=== PATIENT | male | born 1935 | race Caucasian/White ===

== ENCOUNTER → 2023-06-09 | Outpatient (CLI) | payer SELFPAY ==
[2023-06-09 18:59] LABS: Hepatitis A Ab, Total Reactive (Non-Reactive)
[2023-06-09 19:39] LABS: Hepatitis B Surface AB- Quant 3.5 mIU/mL
[2023-06-10 07:05] LABS: Mumps Virus IgG Ab Interp POSITIVE; Mumps Virus IgG Antibody 3.1 AI
== END | disposition home or self-care (01) ==
LOC: LABWHC1 11:51
PROVIDERS: ATTEND Family Medicine
DX: Z02.89 Encounter for other administrative examinations (principal)
CPT/HCPCS: 36415; 86706; 86708; 86735; 86762; 86765; 86780; 86787; 87591

== ENCOUNTER 2023-12-26 15:34 | Inpatient (IN) | payer MEDICARE, OTHER ==
[2023-12-26] MEDS: SODIUM CHLORIDE 0.9% 500 ML 500 ML IV STA (17:25)
[2023-12-26 18:06] LABS: ALT 30 U/L (4-49); AST 52 U/L (17-59); African American GFR (CKD) 64 (>60 ml/min/1.73 sqM); Albumin 2.9 g/dL (3.5-5.0); Alkaline Phosphatase 58 U/L (38-126); Anion Gap 5 mmol/L; Blood Urea Nitrogen 41 mg/dL (9-20); Calcium 8.9 mg/dL (8.4-10.2); Carbon Dioxide 27 mmol/L (22-30); Chloride 102 mmol/L (98-107); Glucose 91 mg/dL (74-99); Lipase 30 U/L (23-300); Non-African American GFR(CKD) 55 (>60 ml/min/1.73 sqM); Potassium 4.4 mmol/L (3.5-5.1); Sodium 134 mmol/L (137-145); Total Bilirubin 0.4 mg/dL (0.2-1.3); Total Protein 6.1 g/dL (6.3-8.2)
[2023-12-26 18:21] LABS: Basophils # (A) 0.1 k/uL (0-0.2); Basophils % (A) 1 %; Eosinophils # (A) 0.1 k/uL (0-0.7); Eosinophils % (A) 1 %; HCT 31.6 % (39.0-53.0); Hypochromasia Slight; Lymphocytes % (A) 13 %; MCH 25.9 pg (25.0-35.0); MCHC 31.6 g/dL (31.0-37.0); MCV 82.1 fL (80.0-100.0); Mean Platelet Volume 8.4; Monocytes % (A) 13 %; Neutrophils % (A) 68 %; Platelet Count 557 k/uL (150-450); RBC 3.85 m/uL (4.30-5.90); RDW 14.6 % (11.5-15.5); WBC 7.4 k/uL (3.8-10.6)
--- NOTE | 2023-12-26 19:06 | XR ---
EXAMINATION TYPE: XR chest 2V DATE OF EXAM: 12/26/2023 6:39 PM CLINICAL INDICATION:Male, 88 years old with history of abdominal pain; [facility] COMPARISON: CT same day. TECHNIQUE: XR chest 2V Frontal and lateral views of the chest. FINDINGS: Lungs/Pleura: There is flattening of the diaphragm with increased lucency of the lungs. No evidence o f pneumothorax, pleural effusion or focal consolidation. Calcifications along the pleura present. Pulmonary vascularity: Unremarkable. Heart/mediastinum: Cardiomediastinal silhouette is unremarkable. Musculoskeletal: No acute osseous pathology. IMPRESSION: 1. No acute cardiopulmonary disease process. 2. COPD changes. 3. Suspected consultations along the pleura, correlate for history of asbestos exposure.
--- NOTE | 2023-12-26 19:29 | CT ---
EXAMINATION TYPE: CT abdomen pelvis w con CT DLP: 572.9 mGycm, Automated exposure control for dose reduction was used. DATE OF EXAM: 12/26/2023 6:53 PM COMPARISON: None CLINICAL INDICATION:Male, 88 years old with history of abdominal pain, weight loss, hx cancer; Abdomi nal pain, weight loss, hernia. Hx of CA. TECHNIQUE: Axial CT abdomen pelvis w con;Sagittal and coronal reformats were created on a separate w orkstation. Contrast used:80 mL of Isovue 300 with IV Contrast, (none if empty) Oral contrast used: without Oral Contrast (none if empty) FINDINGS: LOWER CHEST: Thickening of the pleura on the left costophrenic angle series 201 image 21. Calcified p leural plaques are also present. Severe coronary artery calcifications and aortic valve consultations are present. ABDOMEN LIVER: Unremarkable GALLBLADDER AND BILE DUCTS: Unremarkable. PANCREAS: Unremarkable. SPLEEN: Unremarkable. ADRENAL GLANDS: Unremarkable. KIDNEYS AND URETERS: No evidence of hydronephrosis or renal calculus. The ureters are unremarkable. PELVIS BLADDER: Markedly distended urinary bladder. REPRODUCTIVE: Unremarkable. ABDOMEN & PELVIS STOMACH AND BOWEL: No evidence of bowel obstruction. PERITONEUM/RETROPERITONEUM: No evidence of pneumoperitoneum or free fluid. Thickened omentum anterior ly with soft tissue density best appreciated on the right series 201 image 32 and extending across mi dline series 201 image 43. VASCULATURE: No evidence of aortic aneurysm. MUSCULOSKELETAL: No acute osseous abnormalities LYMPH NODES: No gross evidence for lymphadenopathy. SOFT TISSUE/ABDOMINAL WALL: Left inguinal hernia containing loops of colon. IMPRESSION: 1. The omentum appears to have soft tissue thickening throughout the anterior, right abdomen. Additi onally there is nodular thickening of the left lateral costophrenic angle on the pleura. Findings nita picious for neoplastic process. Further evaluation with PET/CT may be of benefit. Further workup fahad mmended. 2. Left inguinal hernia containing loops of colon. 3. Distended urinary bladder correlate for the need for Turner catheterization. 4. Calcified pleural plaque correlate for history of asbestos exposure. 5. Severe aortic valve leaflet calcifications.
--- NOTE | 2023-12-26 20:30 | ED ---
Abdominal Pain HPI - General Chief Complaint: Abdominal Pain Stated Complaint: Hernia Time Seen by Provider: 12/26/23 15:49 Source: patient Mode of arrival: ambulatory Limitations: no limitations - History of Present Illness Initial Comments: 88-year-old male who presents emergency department with weight loss and progressive decline. His family is at bedside and provides the history. States that the patient has become weaker over the past couple of months. He has a very poor appetite. He has had significant weight loss. Patient has had some pain from an inguinal hernia. States that the area is hard and has been like this since July. He is unable to reduce the hernia. He has had decrease in the caliber of his bowel movements. Patient concerned that the hernia is obstructing. He denies any black or bloody stools. No fevers. Denies any changes in his urination. No chest pain or difficulty breathing. No other alleviating, precipitating or modifying factors - Related Data Home Medications Medication Instructions Recorded Confirmed Aspirin EC [Ecotrin Low Dose] 81 mg PO DAILY 12/26/23 12/26/23 Atorvastatin [Lipitor] 40 mg PO W/SUPPER 12/26/23 12/26/23 Bisoprolol [Zebeta] 5 mg PO DAILY 12/26/23 12/26/23 Lansoprazole [Prevacid] 30 mg PO W/SUPPER 12/26/23 12/26/23 Lisinopril-Hctz 20-12.5 mg 1 tab PO DAILY 12/26/23 12/26/23 [Zestoretic 20-12.5] Mometasone Furoate [Nasonex 24Hr 1 spray NASAL HS 12/26/23 12/26/23 Allergy] Silodosin [Rapaflo] 8 mg PO W/SUPPER 12/26/23 12/26/23 Allergies Allergy/AdvReac Type Severity Reaction Status Date / Time Penicillins AdvReac Nausea & Verified 12/26/23 16:56 Vomiting & Diarrhea Review of Systems ROS Statement: Those systems with pertinent positive or pertinent negative responses have been documented in the HPI. ROS Other: All systems not noted in ROS Statement are negative. Past Medical History Past Medical History: Cancer Additional Past Medical History / Comment(s): L lung cancer-removed Past Surgical History: Heart Catheterization With Stent Smoking Status: Never smoker Past Alcohol Use History: None Reported Past Drug Use History: None Reported General Exam Limitations: no limitations General appearance: alert, in no apparent distress Head exam: Present: atraumatic, normocephalic, normal inspection Eye exam: Present: normal appearance, PERRL, EOMI. Absent: scleral icterus, conjunctival injection, periorbital swelling ENT exam: Present: normal exam, mucous membranes moist Neck exam: Present: normal inspection. Absent: tenderness, meningismus, lymphadenopathy Respiratory exam: Present: normal lung sounds bilaterally. Absent: respiratory distress, wheezes, rales, rhonchi, stridor Cardiovascular Exam: Present: regular rate, normal rhythm, normal heart sounds. Absent: systolic murmur, diastolic murmur, rubs, gallop, clicks GI/Abdominal exam: Present: soft, tenderness (To the left inguinal fold where there is a hernia. It is not reducible.), normal bowel sounds. Absent: distended, guarding, rebound, rigid Extremities exam: Present: normal inspection, full ROM, normal capillary refill. Absent: tenderness, pedal edema, joint swelling, calf tenderness Back exam: Present: normal inspection Neurological exam: Present: alert, oriented X3, CN II-XII intact Psychiatric exam: Present: normal affect, normal mood Skin exam: Present: warm, dry, intact, normal color. Absent: rash Course Vital Signs 12/26/23 12/26/23 12/26/23 15:36 18:58 21:08 Temperature 97.8 F Pulse Rate 74 79 68 Respiratory 18 16 18 Rate Blood Pressure 122/62 146/54 111/55 O2 Sat by Pulse 96 99 97 Oximetry 12/26/23 23:34 Temperature 98.2 F Pulse Rate 73 Respiratory 18 Rate Blood Pressure 135/51 O2 Sat by Pulse 98 Oximetry Medical Decision Making - Medical Decision Making Was pt. sent in by a medical professional or institution (, PA, SCCM ADMINISTRATOR, urgent care, hospital, or skilled nursing...) When possible be specific @ -No Did you speak to anyone other than the patient for history (EMS, parent, family, police, friend...)? What history was obtained from this source @ -I spoke with the patient's family in regards to his symptoms Did you review nursing and triage notes (agree or disagree)? Why? @ -I reviewed and agree with nursing and triage notes Were old charts reviewed (outside hosp., previous admission, EMS record, old EKG, old radiological studies, urgent care reports/EKG's, skilled nursing records)? Report findings @ -No old charts were reviewed Differential Diagnosis (chest pain, altered mental status, abdominal pain women, abdominal pain men, vaginal bleeding, weakness, fever, dyspnea, syncope, headache, dizziness, GI bleed, back pain, seizure, CVA, palpatations, mental health, musculoskeletal)? @ -Differential Weakness: Hypoglycemia, shock, sepsis, hyponatremia, anemia, infection, NV, ETOH, adverse medicine reaction, overdose, stroke, this is not meant to be an all-inclusive list. EKG interpreted by me (3pts min.). @ -Yes and demonstrates sinus rhythm with a rate of 69. ME interval 199. QRS 84. QTc of 413. No acute ST segment elevations or depressions X-rays interpreted by me (1pt min.). @ -Yes and demonstrates asbestos exposure CT interpreted by me (1pt min.). @ -Yes and demonstrates omental thickening U/S interpreted by me (1pt. min.). @ -None done What testing was considered but not performed or refused? (CT, X-rays, U/S, labs)? Why? @ -None What meds were considered but not given or refused? Why? @ -None Did you discuss the management of the patient with other professionals (eris warren i.e. , PA, SCCM ADMINISTRATOR, lab, RT, psych nurse, child protective services social worker, crystal calibrator, teacher, safety and security officer, housing case manager)? Give summary @ -Spoke with Adri from [facility] Was smoking cessation discussed for >3mins.? @ -No Was critical care preformed (if so, how long)? @ -No Were there social determinants of health that impacted care today? How? (Homelessness, low income, unemployed, alcoholism, drug addiction, transportation, low edu. Level, literacy, decrease access to med. care, long-term, rehab)? @ -Patient is a [place] resident here on green card Was there de-escalation of care discussed even if they declined (Discuss DNR or withdrawal of care, Hospice)? DNR status @ -No What co-morbidities impacted this encounter? (DM, HTN, Smoking, COPD, CAD, Cancer, CVA, ARF, Chemo, Hep., AIDS, mental health diagnosis, sleep apnea, morbid obesity)? @ -None Was patient admitted / discharged? Hospital course, mention meds given and route, prescriptions, significant lab abnormalities, going to OR and other pert inent info. @ -Upon arrival patient seen and evaluated. IV was established. Laboratory studies were conducted. Chest x-ray and CT of the abdomen was performed. There is concern for undiagnosed cancer. Discussed this with the patient. Recommended admission for oncology evaluation. Patient agreeable to this Undiagnosed new problem with uncertain prognosis? @ -Yes Drug Therapy requiring intensive monitoring for toxicity (Heparin, Nitro, Insulin, Cardizem)? @ -No Were any procedures done? @ -No Diagnosis/symptom? @ -Generalized weakness, suspected new onset cancer, omental mass, left i nguinal hernia Acute, or Chronic, or Acute on Chronic? @ -Acute on chronic Uncomplicated (without systemic symptoms) or Complicated (systemic symptoms)? @ -Complicated Side effects of treatment? @ -No Exacerbation, Progression, or Severe Exacerbation? @ -No Poses a threat to life or bodily function? How? (Chest pain, USA, NV, pneumonia, PE, COPD, DKA, ARF, appy, cholecystitis, CVA, Diverticulitis, Homicidal, Suicidal, threat to staff... and all critical care pts) @ -Yes as patient likely has undiagnosed cancer - Lab Data Result diagrams: 12/27/23 06:53 12/27/23 06:53 Lab Results 12/26/23 12/26/23 12/26/23 Range/Units 17:14 17:14 17:14 WBC 7.4 (3.8-10.6) k/uL RBC 3.85 L (4.30-5.90) m/uL Hgb 10.0 L (13.0-17.5) gm/dL Hct 31.6 L (39.0-53.0) % MCV 82.1 (80.0-100.0) fL MCH 25.9 (25.0-35.0) pg MCHC 31.6 (31.0-37.0) g/dL RDW 14.6 (11.5-15.5) % Plt Count 557 H (150-450) k/uL MPV 8.4 Neutrophils % 68 % Lymphocytes % 13 % Monocytes % 13 % Eosinophils % 1 % Basophils % 1 % Neutrophils # 5.0 (1.3-7.7) k/uL Lymphocytes # 1.0 (1.0-4.8) k/uL Monocytes # 1.0 (0-1.0) k/uL Eosinophils # 0.1 (0-0.7) k/uL Basophils # 0.1 (0-0.2) k/uL Hypochromasia Slight Sodium 134 L (137-145) mmol/L Potassium 4.4 (3.5-5.1) mmol/L Chloride 102 (98-107) mmol/L Carbon Dioxide 27 (22-30) mmol/L Anion Gap 5 mmol/L BUN 41 H (9-20) mg/dL Creatinine 1.17 (0.66-1.25) mg/dL Est GFR (CKD-EPI)AfAm 64 (>60 ml/min/1.73 sqM) Est GFR (CKD-EPI)NonAf 55 (>60 ml/min/1.73 sqM) Glucose 91 (74-99) mg/dL Lactic Ac Sepsis Rflx Plasma Lactic Acid Elliott 2.5 H* (0.7-2.0) mmol/L Calcium 8.9 (8.4-10.2) mg/dL Total Bilirubin 0.4 (0.2-1.3) mg/dL AST 52 (17-59) U/L ALT 30 (4-49) U/L Alkaline Phosphatase 58 (38-126) U/L Troponin I (0.000-0.034) ng/mL Total Protein 6.1 L (6.3-8.2) g/dL Albumin 2.9 L (3.5-5.0) g/dL Lipase 30 (23-300) U/L Urine Color Urine Appearance (Clear) Urine pH (5.0-8.0) Ur Specific [place] (1.001-1.035) Urine Protein (Negative) Urine Glucose (UA) (Negative) Urine Ketones (Negative) Urine Blood (Negative) Urine Nitrite (Negative) Urine Bilirubin (Negative) Urine Urobilinogen (<2.0) mg/dL Ur Leukocyte Esterase (Negative) 12/26/23 12/26/23 12/26/23 Range/Units 17:14 18:19 19:16 WBC (3.8-10.6) k/uL RBC (4.30-5.90) m/uL Hgb (13.0-17.5) gm/dL Hct (39.0-53.0) % MCV (80.0-100.0) fL MCH (25.0-35.0) pg MCHC (31.0-37.0) g/dL RDW (11.5-15.5) % Plt Count (150-450) k/uL MPV Neutrophils % % Lymphocytes % % Monocytes % % Eosinophils % % Basophils % % Neutrophils # (1.3-7.7) k/uL Lymphocytes # (1.0-4.8) k/uL Monocytes # (0-1.0) k/uL Eosinophils # (0-0.7) k/uL Basophils # (0-0.2) k/uL Hypochromasia Sodium (137-145) mmol/L Potassium (3.5-5.1) mmol/L Chloride (98-107) mmol/L Carbon Dioxide (22-30) mmol/L Anion Gap mmol/L BUN (9-20) mg/dL Creatinine (0.66-1.25) mg/dL Est GFR (CKD-EPI)AfAm (>60 ml/min/1.73 sqM) Est GFR (CKD-EPI)NonAf (>60 ml/min/1.73 sqM) Glucose (74-99) mg/dL Lactic Ac Sepsis Rflx Y Plasma Lactic Acid Elliott (0.7-2.0) mmol/L Calcium (8.4-10.2) mg/dL Total Bilirubin (0.2-1.3) mg/dL AST (17-59) U/L ALT (4-49) U/L Alkaline Phosphatase (38-126) U/L Troponin I <0.012 (0.000-0.034) ng/mL Total Protein (6.3-8.2) g/dL Albumin (3.5-5.0) g/dL Lipase (23-300) U/L Urine Color Yellow Urine Appearance Clear (Clear) Urine pH 5.5 (5.0-8.0) Ur Specific [place] 1.025 (1.001-1.035) Urine Protein Trace H (Negative) Urine Glucose (UA) Negative (Negative) Urine Ketones Negative (Negative) Urine Blood Negative (Negative) Urine Nitrite Negative (Negative) Urine Bilirubin Negative (Negative) Urine Urobilinogen <2.0 (<2.0) mg/dL Ur Leukocyte Esterase Negative (Negative) 12/26/23 Range/Units 20:26 WBC (3.8-10.6) k/uL RBC (4.30-5.90) m/uL Hgb (13.0-17.5) gm/dL Hct (39.0-53.0) % MCV (80.0-100.0) fL MCH (25.0-35.0) pg MCHC (31.0-37.0) g/dL RDW (11.5-15.5) % Plt Count (150-450) k/uL MPV Neutrophils % % Lymphocytes % % Monocytes % % Eosinophils % % Basophils % % Neutrophils # (1.3-7.7) k/uL Lymphocytes # (1.0-4.8) k/uL Monocytes # (0-1.0) k/uL Eosinophils # (0-0.7) k/uL Basophils # (0-0.2) k/uL Hypochromasia Sodium (137-145) mmol/L Potassium (3.5-5.1) mmol/L Chloride (98-107) mmol/L Carbon Dioxide (22-30) mmol/L Anion Gap mmol/L BUN (9-20) mg/dL Creatinine (0.66-1.25) mg/dL Est GFR (CKD-EPI)AfAm (>60 ml/min/1.73 sqM) Est GFR (CKD-EPI)NonAf (>60 ml/min/1.73 sqM) Glucose (74-99) mg/dL Lactic Ac Sepsis Rflx Plasma Lactic Acid Elliott 1.2 (0.7-2.0) mmol/L Calcium (8.4-10.2) mg/dL Total Bilirubin (0.2-1.3) mg/dL AST (17-59) U/L ALT (4-49) U/L Alkaline Phosphatase (38-126) U/L Troponin I (0.000-0.034) ng/mL Total Protein (6.3-8.2) g/dL Albumin (3.5-5.0) g/dL Lipase (23-300) U/L Urine Color Urine Appearance (Clear) Urine pH (5.0-8.0) Ur Specific [place] (1.001-1.035) Urine Protein (Negative) Urine Glucose (UA) (Negative) Urine Ketones (Negative) Urine Blood (Negative) Urine Nitrite (Negative) Urine Bilirubin (Negative) Urine Urobilinogen (<2.0) mg/dL Ur Leukocyte Esterase (Negative) Disposition Clinical Impression: Weight loss, Failure to thrive, Inguinal hernia, Abdominal pain Disposition: ADMITTED IP TO THIS HOSP Condition: Stable Is patient prescribed a controlled substance at d/c from ED?: No Time of Disposition: 20:30 Decision to Admit Reason: Admit from EC Decision Date: 12/26/23 Decision Time: 20:30
[2023-12-26] MEDS ORDERED: NALOXONE 0.4 MG/ML 1 ML VIAL IV PRN (20:31)
[2023-12-26] MEDS ORDERED: ACETAMINOPHEN TAB 325 MG TAB PO PRN (20:31)
[2023-12-26 20:48] LABS: Appearance,Urine Clear (Clear); Bilirubin,Urine Negative (Negative); Blood,Urine Negative (Negative); Color,Urine Yellow; Glucose,Urine (UA) Negative (Negative); Ketones,Urine Negative (Negative); Leukocyte Esterase,Urine Negative (Negative); Nitrite,Urine Negative (Negative); PH, Urine 5.5 (5.0-8.0); Protein,Urine Trace (Negative); Specific Gravity,Urine 1.025 (1.001-1.035); Urobilinogen,Urine <2.0 mg/dL (<2.0)
[2023-12-27 10:28] LABS: Basophils # (A) 0.09 X 10*3/uL (0.00-0.10); Basophils % (A) 1.3 %; Eosinophils # (A) 0.23 X 10*3/uL (0.04-0.35); Eosinophils % (A) 3.4 %; HCT 33.3 % (39.6-50.0); HGB 10.1 g/dL (13.0-17.0); Lymphocytes # (A) 1.25 X 10*3/uL (0.90-5.00); Lymphocytes % (A) 18.4 %; MCH 24.6 pg (27.0-32.0); MCHC 30.3 g/dL (32.0-37.0); MCV 81.2 FL (80.0-97.0); Mean Platelet Volume 9.1 FL (9.5-12.2); Monocytes # (A) 1.01 X 10*3/uL (0.20-1.00); Monocytes % (A) 14.8 %; NRBC Per 100 WBC 0 X 10*3/uL (0.00-0.01); Neutrophils % (A) 61.7 %; Platelet Count 698 X 10*3/uL (140-440); RDW 15.5 % (11.5-14.5); WBC 6.81 X 10*3/uL (4.50-10.00)
[2023-12-27 10:44] LABS: Blood Urea Nitrogen 29.5 mg/dL (9.0-27.0); Carbon Dioxide 24.9 mmol/L (21.6-31.8); Chloride 100 mmol/L (96-109); Glucose 92 mg/dL (70-110); Potassium 4.4 mmol/L (3.5-5.5); Sodium 136 mmol/L (135-145)
[2023-12-27] MEDS ORDERED: RX INFO: IV CONTRAST WAS GIVEN 1 EACH MISC MISCELLANE PRN (12:00)
[2023-12-27 12:17] VITALS: BMI 16.9
--- NOTE | 2023-12-27 13:17 | P.GSCN ---
History of Present Illness Consult date: 12/27/23 History of present illness: CHIEF COMPLAINT: abdominal pain HISTORY OF PRESENT ILLNESS: This is a 88-year-old male who presented to the hospital with complaints of abdominal pain. Patient has had decrease in appetite and has had a 75 pound weight loss that is unintentional. He denies any nausea or vomiting. He reports having bowel movements that have been semisoft and solid. He has a known left inguinal hernia for about 2 years. He reports that it has always partially reduced. Patient reports that he has had no appetite. Food does not have any taste. This morning he was able to eat his breakfast. CT scan abdomen and pelvis reports the omentum appears to have soft tissue thickening throughout the anterior, right abdomen. Additionally there is nodular thickening of the left lateral costophrenic angle on the pleural. Findings are suspicious for neoplastic process. Left inguinal hernia containing loops of colon. Surgical service has been consulted in regards to left inguinal hernia. Patient does have a prior history of left lung cancer with removal of the portion of the lung. Patient seen and examined with Dr. Lainez PAST MEDICAL HISTORY: Left lung cancer, mesothelioma PAST SURGICAL HISTORY: Heart catheterization with stent MEDICATIONS: See below ALLERGIES: See below SOCIAL HISTORY: No illicit drug use. REVIEW OF SYSTEMS: CONSTITUTIONAL: Denies fever or chills. HEENT: Denies blurred vision, vision changes, or eye pain. Denies hemoptysis CARDIOVASCULAR: Denies chest pain or pressure. RESPIRATORY: No shortness of breath. GASTROINTESTINAL: See HPI for pertinent findings HEMATOLOGIC: Denies bleeding disorders. GENITOURINARY: Denies any blood in urine or increased urinary frequency. SKIN: Denies pruitis. Denies rash. PHYSICAL EXAM: VITAL SIGNS: Reviewed GENERAL: Well-developed in no acute distress. HEENT: No sclera icterus. Extraocular movements grossly intact. Moist buccal mucosa. Head is atraumatic, normocephalic. No nasal drainage. ABDOMEN: Soft. Nondistended. Mild tenderness right lower quadrant. Left inguinal hernia mild tenderness and nonreducible NEUROLOGIC: Alert and oriented. Cranial nerves II through XII grossly intact. LABORATORY DATA: WBC 6.81 Hgb 10.1 platelets 698 Sodium is 136 potassium 4.4 creatinine 1.0 Lactic acid 2.5 down to 1.2 LFTs and lipase within normal range albumin 2.9 IMAGING: CT scan abdomen pelvis reports omentum appears to have soft tissue thickening throughout the anterior right abdomen. Additionally there is nodular thickening of the left lateral costophrenic angle on the pleural. Findings suspicious for neoplastic process. Left inguinal hernia containing loops of colon. Distended urinary bladder. Calcified pleural plaque correlate for history of asbestos exposure. Severe aortic valve leaflet calcifications. ASSESSMENT: 1. Left inguinal hernia containing loops of bowel noted on CT scan. No obstruction noted 2. Right lower quadrant abdominal tenderness. CT scan reports omentum appears to have soft tissue thickening throughout the anterior right abdomen 3. History of lung cancer 4. Unintentional weight loss PLAN: -No surgical intervention planned at this time -Recommend left inguinal hernia repair when patient is medically optimized -Continue oncology workup Physician Special Education Para Professional note has been reviewed by physician. Signing provider agrees with the documented findings, assessment, and plan of care. Past Medical History Past Medical History: Cancer, GERD/Reflux, Hypertension Additional Past Medical History / Comment(s): L lung cancer-removed, June had stent put into L aorta, skin cancer History of Any Multi-Drug Resistant Organisms: None Reported Past Surgical History: Heart Catheterization With Stent Additional Past Surgical History / Comment(s): Lung cancer removed Past Anesthesia/Blood Transfusion Reactions: No Reported Reaction Date of Last Stent Placement:: 06/2022 Past Psychological History: Depression Smoking Status: Never smoker Past Alcohol Use History: None Reported Past Drug Use History: None Reported Medications and Allergies Home Medications Medication Instructions Recorded Confirmed Type Aspirin EC [Ecotrin Low Dose] 81 mg PO DAILY 12/26/23 12/26/23 History Atorvastatin [Lipitor] 40 mg PO W/SUPPER 12/26/23 12/26/23 History Bisoprolol [Zebeta] 5 mg PO DAILY 12/26/23 12/26/23 History Lansoprazole [Prevacid] 30 mg PO W/SUPPER 12/26/23 12/26/23 History Lisinopril-Hctz 20-12.5 mg 1 tab PO DAILY 12/26/23 12/26/23 History [Zestoretic 20-12.5] Mometasone Furoate [Nasonex 24Hr 1 spray NASAL HS 12/26/23 12/26/23 History Allergy] Silodosin [Rapaflo] 8 mg PO W/SUPPER 12/26/23 12/26/23 History Allergies Allergy/AdvReac Type Severity Reaction Status Date / Time Penicillins AdvReac Nausea & Verified 12/26/23 16:56 Vomiting & Diarrhea Surgical - Exam Vital Signs Temp Pulse Resp BP Pulse Ox 97.8 F 74 18 122/62 96 12/26/23 15:36 12/26/23 15:36 12/26/23 15:36 12/26/23 15:36 12/26/23 15:36 Results - Labs 12/27/23 06:53 12/27/23 06:53 Abnormal Lab Results - Last 24 Hours (Table) 12/26/23 12/26/23 12/26/23 Range/Units 17:14 17:14 17:14 RBC 3.85 L (4.30-5.90) m/uL Hgb 10.0 L (13.0-17.5) gm/dL Hct 31.6 L (39.0-53.0) % Plt Count 557 H (150-450) k/uL Sodium 134 L (137-145) mmol/L BUN 41 H (9-20) mg/dL Plasma Lactic Acid Elliott 2.5 H* (0.7-2.0) mmol/L Total Protein 6.1 L (6.3-8.2) g/dL Albumin 2.9 L (3.5-5.0) g/dL Urine Protein (Negative) 12/26/23 Range/Units 19:16 RBC (4.30-5.90) m/uL Hgb (13.0-17.5) gm/dL Hct (39.0-53.0) % Plt Count (150-450) k/uL Sodium (137-145) mmol/L BUN (9-20) mg/dL Plasma Lactic Acid Elliott (0.7-2.0) mmol/L Total Protein (6.3-8.2) g/dL Albumin (3.5-5.0) g/dL Urine Protein Trace H (Negative) Diabetes panel 12/26/23 Range/Units 17:14 Sodium 134 L (137-145) mmol/L Potassium 4.4 (3.5-5.1) mmol/L Chloride 102 (98-107) mmol/L Carbon Dioxide 27 (22-30) mmol/L BUN 41 H (9-20) mg/dL Creatinine 1.17 (0.66-1.25) mg/dL Glucose 91 (74-99) mg/dL Calcium 8.9 (8.4-10.2) mg/dL AST 52 (17-59) U/L ALT 30 (4-49) U/L Alkaline Phosphatase 58 (38-126) U/L Total Protein 6.1 L (6.3-8.2) g/dL Albumin 2.9 L (3.5-5.0) g/dL Calcium panel 12/26/23 Range/Units 17:14 Calcium 8.9 (8.4-10.2) mg/dL Albumin 2.9 L (3.5-5.0) g/dL Pituitary panel 12/26/23 Range/Units 17:14 Sodium 134 L (137-145) mmol/L Potassium 4.4 (3.5-5.1) mmol/L Chloride 102 (98-107) mmol/L Carbon Dioxide 27 (22-30) mmol/L BUN 41 H (9-20) mg/dL Creatinine 1.17 (0.66-1.25) mg/dL Glucose 91 (74-99) mg/dL Calcium 8.9 (8.4-10.2) mg/dL Adrenal panel 12/26/23 Range/Units 17:14 Sodium 134 L (137-145) mmol/L Potassium 4.4 (3.5-5.1) mmol/L Chloride 102 (98-107) mmol/L Carbon Dioxide 27 (22-30) mmol/L BUN 41 H (9-20) mg/dL Creatinine 1.17 (0.66-1.25) mg/dL Glucose 91 (74-99) mg/dL Calcium 8.9 (8.4-10.2) mg/dL Total Bilirubin 0.4 (0.2-1.3) mg/dL AST 52 (17-59) U/L ALT 30 (4-49) U/L Alkaline Phosphatase 58 (38-126) U/L Total Protein 6.1 L (6.3-8.2) g/dL Albumin 2.9 L (3.5-5.0) g/dL
--- NOTE | 2023-12-27 13:45 | CT ---
EXAMINATION TYPE: CT chest w con DATE OF EXAM: 12/27/2023 COMPARISON: Radiographs 12/26/2023 HISTORY: 88-year-old male nodular thickening left lateral pleural on CT abdomen and pelvis, prior abn ormal imaging TECHNIQUE: Contiguous axial scanning of the chest after the administration of 80 mL of Isovue 300. C oronal/sagittal reconstructions performed. CT DLP: 302mGycm. Automatic exposure control utilized for a dose reduction. FINDINGS: Heart normal size without pericardial effusion. RCA and circumflex coronary artery calcifications not ed. Aorta normal caliber with conventional arch vessel branching anatomy. Large caliber to the main right and left pulmonary arteries up to 3. Centimeters suggesting underlyin g pulmonary artery hypertension. No thoracic lymphadenopathy CT size criteria. Bilateral calcified pleural plaques. Moderate emphysematous change. A few scattered calcified granulo mas in the lungs. Scattered pulmonary nodules measuring up to 6 mm. Slight nodular thickening associated with scarring at the left base measuring 7 mm on axial image 50. Spiculated density measuring 1.2 cm adjacent to a calcified pleural plaque lateral left upper lung, a xial image 27. Previously described omental thickening along the bilateral upper quadrants. There appears to be mild associated free fluid left upper quadrant also present. Bones: No osseous destructive process. IMPRESSION: 1. 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 Scattered strandy scarring is present along with a few pulmonary nodules measuring up to 1.2 cm. These are nonspecific and should be reassessed on a 3-6 month follow-up CT to exclude neoplasm. 2. Omental thickening along the bilateral upper quadrant reported on recent 12/26/2023 CT abdomen. Mes enteric mesothelioma, peritoneal carcinomatosis, pseudomyxoma peritonei, lymphoma, and peritoneal tub erculosis are some considerations.
--- NOTE | 2023-12-27 13:55 | P.HPIM ---
History of Present Illness Patient is a pleasant 88 years old male with past medical history of multiple medical problems as below including GERD/Reflux, Hypertension, lung cancer status post lobectomy which was about 10 years ago. Patient was recently moved back from [place] about 2 years ago, he does not have a PCP since then. Lately he has been losing weight and appetite and strength and family are concerned but patient has no PCP to follow-up till yesterday they convinced him to come to emergency room. Patient denies significant dyspnea or chest pain no coughing He has occasional abdominal pain but no vomiting. Sometimes he has regular bowel movement and sometimes diarrhea but no urinary complaints. No headache dizziness specific limb weakness or numbness. He is non-smoker no alcohol or illicit drugs Patient states that he lost about 20 pounds over the last 6 months Hemodynamically stable and afebrile He has unremarkable CBC, BMP liver enzymes and troponin. Creatinine 1.17. Urine analysis negative Lactic acid mildly elevated came back to normal EKG showing sinus rhythm at [address]-T changes CT of the abdomen and pelvis showing thickening of the omentum with nodules and left lateral costophrenic pleura suspicious for neoplasm. Also has left inguinal hernia with loops of bowel. He has distended urinary bladder. He has severe aortic valve calcification. Past Medical History Past Medical History: Cancer, GERD/Reflux, Hypertension Additional Past Medical History / Comment(s): L lung cancer-removed, June had stent put into L aorta, skin cancer History of Any Multi-Drug Resistant Organisms: None Reported Past Surgical History: Heart Catheterization With Stent Additional Past Surgical History / Comment(s): Lung cancer removed Past Anesthesia/Blood Transfusion Reactions: No Reported Reaction Date of Last Stent Placement:: 06/2022 Past Psychological History: Depression Smoking Status: Never smoker Past Alcohol Use History: None Reported Past Drug Use History: None Reported Medications and Allergies Home Medications Medication Instructions Recorded Confirmed Type Aspirin EC [Ecotrin Low Dose] 81 mg PO DAILY 12/26/23 12/26/23 History Atorvastatin [Lipitor] 40 mg PO W/SUPPER 12/26/23 12/26/23 History Bisoprolol [Zebeta] 5 mg PO DAILY 12/26/23 12/26/23 History Lansoprazole [Prevacid] 30 mg PO W/SUPPER 12/26/23 12/26/23 History Lisinopril-Hctz 20-12.5 mg 1 tab PO DAILY 12/26/23 12/26/23 History [Zestoretic 20-12.5] Mometasone Furoate [Nasonex 24Hr 1 spray NASAL HS 12/26/23 12/26/23 History Allergy] Silodosin [Rapaflo] 8 mg PO W/SUPPER 12/26/23 12/26/23 History Allergies Allergy/AdvReac Type Severity Reaction Status Date / Time Penicillins AdvReac Nausea & Verified 12/26/23 16:56 Vomiting & Diarrhea Physical Exam Vitals: Vital Signs Temp Pulse Pulse Resp BP BP Pulse Ox 12/27/23 00:12 98.6 F 63 15 130/66 100 12/26/23 23:34 98.2 F 73 18 135/51 98 12/26/23 21:08 68 18 111/55 97 12/26/23 18:58 79 16 146/54 99 12/26/23 15:36 97.8 F 74 18 122/62 96 Intake and Output 12/26/23 12/27/23 12/27/23 22:59 06:59 14:59 Intake Total 240 Balance 240 Intake: Oral 240 Other: Weight 48.988 kg 48.988 kg -GENERAL: The patient is alert and oriented x3, not in any acute distress. cachectic HEENT: Pupils are round and equally reacting to light. EOMI. No scleral icterus. No conjunctival pallor. Normocephalic, atraumatic. No pharyngeal erythema. No thyromegaly. CARDIOVASCULAR: S1 and S2 present. No murmurs, rubs, or gallops. PULMONARY: Chest is clear to auscultation, no wheezing , no crackles. ABDOMEN: Soft, nontender, nondistended, normoactive bowel sounds. No palpable organomegaly. MUSCULOSKELETAL: No joint swelling or deformity. EXTREMITIES: No cyanosis, clubbing, or pedal edema. NEUROLOGICAL: Gross neurological examination did not reveal any focal deficits. SKIN: No rashes. no petechiae. Results CBC & Chem 7: 12/27/23 06:53 12/27/23 06:53 Labs: Abnormal Lab Results - Last 24 Hours (Table) 12/26/23 12/26/23 12/26/23 Range/Units 17:14 17:14 17:14 RBC 3.85 L (4.30-5.90) m/uL Hgb 10.0 L (13.0-17.5) gm/dL Hct 31.6 L (39.0-53.0) % Plt Count 557 H (150-450) k/uL Sodium 134 L (137-145) mmol/L BUN 41 H (9-20) mg/dL Plasma Lactic Acid Elliott 2.5 H* (0.7-2.0) mmol/L Total Protein 6.1 L (6.3-8.2) g/dL Albumin 2.9 L (3.5-5.0) g/dL Urine Protein (Negative) 12/26/23 Range/Units 19:16 RBC (4.30-5.90) m/uL Hgb (13.0-17.5) gm/dL Hct (39.0-53.0) % Plt Count (150-450) k/uL Sodium (137-145) mmol/L BUN (9-20) mg/dL Plasma Lactic Acid Elliott (0.7-2.0) mmol/L Total Protein (6.3-8.2) g/dL Albumin (3.5-5.0) g/dL Urine Protein Trace H (Negative) Thrombosis Risk Factor Assmnt - Choose All That Apply Any of the Below Risk Factors Present?: No Each Risk Factor Represents 3 Points: Age 75 years or older Thrombosis Risk Factor Assessment Total Risk Factor Score: 3 Thrombosis Risk Factor Assessment Level: Moderate Risk Assessment and Plan Assessment: Nodules of the omentum and left pleura (at costophrenic angle ) suspicious for an neoplasm Generalized weakness and loss of weight secondary to above, with moderate calorie protein malnutrition History of lung cancer status post surgery 10 years ago GERD Hypertension Plan: Hematology oncology team on the case CTA of the chest ordered Patient will require tissue biopsy Surgery team evaluated the patient, no surgical intervention PT/OT DVT and GI prophylaxis:. Prognosis is guarded
[2023-12-27 15:33] LABS: INR 1.1 (<1.2); Prothrombin Time 11.5 sec (10.0-12.5)
--- NOTE | 2023-12-28 13:34 | P.CONS ---
History of Present Illness - Reason for Consult Consult date: 12/27/[address], weight loss, FTT Requesting physician: Dena Boo - Chief Complaint abdominal pain - History of Present Illness Patient is a 88 year old male with a significant history of GERD/Reflux, Hypertension, and lung cancer status post lobectomy approx about 10 years ago but did not undergo XRT or systemic treatment. Consult was placed due to abnormal findings on CT AP. On admission chest x-ray showed no acute cardiopulmonary processes. Suspected consultations along the pleura, correlate for asbestos exposure. CT abdomen and pelvis was obtained showing the omentum appears to have soft tissue thickening throughout the anterior, right abdomen. Additionally there was noted nodular thickening of the left lateral costophrenic angle of the pleura. Left inguinal hernia containing loops of bowel. Distended urinary bladder. Calcified pleural plaque. And severe aortic valve leaflet calcifications. Labs reviewed, WBC 7.4, hemoglobin 10.0, platelets 557,000. Creatinine 1.17, GFR 55. Troponin negative. Lactic acid elevated at 2.5. LFTs and bilirubin WNL. Lipase 30. Afebrile, hemodynamically stable Patient reports he has been having increased abdominal discomfort and reflux symptoms. Also reports loose stools but this has been chronic with no acute changes. Denies blood in stool and melena. Denies dysphagia. Also reports decrease in appetite and approximate 10 pound weight loss over the last 1 month and 50lb weight loss over the last 2 to 3 years. He has not had any recent follow-up with primary care as he moved from [place] 2 years ago and has not established care locally. 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 Review of Systems 10 point ROS is negative except as stated in the HPI Past Medical History Past Medical History: Cancer, GERD/Reflux, Hypertension Additional Past Medical History / Comment(s): L lung cancer-removed, June had stent put into L aorta, skin cancer History of Any Multi-Drug Resistant Organisms: None Reported Past Surgical History: Heart Catheterization With Stent Additional Past Surgical History / Comment(s): Lung cancer removed Past Anesthesia/Blood Transfusion Reactions: No Reported Reaction Date of Last Stent Placement:: 06/2022 Past Psychological History: Depression Smoking Status: Never smoker Past Alcohol Use History: None Reported Past Drug Use History: None Reported Medications and Allergies Home Medications Medication Instructions Recorded Confirmed Type Aspirin EC [Ecotrin Low Dose] 81 mg PO DAILY 12/26/23 12/26/23 History Atorvastatin [Lipitor] 40 mg PO W/SUPPER 12/26/23 12/26/23 History Bisoprolol [Zebeta] 5 mg PO DAILY 12/26/23 12/26/23 History Lansoprazole [Prevacid] 30 mg PO W/SUPPER 12/26/23 12/26/23 History Lisinopril-Hctz 20-12.5 mg 1 tab PO DAILY 12/26/23 12/26/23 History [Zestoretic 20-12.5] Mometasone Furoate [Nasonex 24Hr 1 spray NASAL HS 12/26/23 12/26/23 History Allergy] Silodosin [Rapaflo] 8 mg PO W/SUPPER 12/26/23 12/26/23 History Allergies Allergy/AdvReac Type Severity Reaction Status Date / Time Penicillins AdvReac Nausea & Verified 12/26/23 16:56 Vomiting & Diarrhea Physical Exam Vitals: Vital Signs Temp Pulse Pulse Resp BP BP Pulse Ox 12/27/23 07:55 97.4 F L 71 16 105/66 95 12/27/23 00:12 98.6 F 63 15 130/66 100 12/26/23 23:34 98.2 F 73 18 135/51 98 12/26/23 21:08 68 18 111/55 97 12/26/23 18:58 79 16 146/54 99 12/26/23 15:36 97.8 F 74 18 122/62 96 Intake and Output 12/26/23 12/27/23 12/27/23 22:59 06:59 14:59 Intake Total 240 200 Balance 240 200 Intake: Oral 240 200 Other: Weight 48.988 kg 48.988 kg - Constitutional General appearance: no acute distress, thin - EENT Eyes: anicteric sclerae, EOMI ENT: hearing grossly normal - Respiratory Respiratory: bilateral: CTA - Cardiovascular Rhythm: regular - Gastrointestinal palpable mass in left suprapubic region, left of midline, approx 3-4cm - Genitourinary Male genitourinary: left inguinal hernia - Integumentary Integumentary: no cyanotic - Neurologic Neurologic: CNII-XII intact - Musculoskeletal Musculoskeletal: strength equal bilaterally - Psychiatric Psychiatric: A&O x's 3 Results CBC & Chem 7: 12/27/23 06:53 12/27/23 06:53 Labs: Abnormal Lab Results - Last 24 Hours (Table) 12/26/23 12/26/23 12/26/23 Range/Units 17:14 17:14 17:14 RBC 3.85 L (4.30-5.90) m/uL Hgb 10.0 L (13.0-17.5) gm/dL Hct 31.6 L (39.0-53.0) % MCH (27.0-32.0) pg MCHC (32.0-37.0) g/dL RDW (11.5-14.5) % Plt Count 557 H (150-450) k/uL MPV (9.5-12.2) FL Monocytes # (0.20-1.00) X 10*3/uL Sodium 134 L (137-145) mmol/L BUN 41 H (9-20) mg/dL BUN/Creatinine Ratio (12.00-20.00) Ratio Plasma Lactic Acid El[place]ott 2.5 H* (0.7-2.0) mmol/L Total Protein 6.1 L (6.3-8.2) g/dL Albumin 2.9 L (3.5-5.0) g/dL Urine Protein (Negative) 12/26/23 12/27/23 12/27/23 Range/Units 19:16 06:53 06:53 RBC 4.10 L (4.30-5.90) m/uL Hgb 10.1 L (13.0-17.5) gm/dL Hct 33.3 L (39.0-53.0) % MCH 24.6 L (27.0-32.0) pg MCHC 30.3 L (32.0-37.0) g/dL RDW 15.5 H (11.5-14.5) % Plt Count 698 H (150-450) k/uL MPV 9.1 L (9.5-12.2) FL Monocytes # 1.01 H (0.20-1.00) X 10*3/uL Sodium (137-145) mmol/L BUN 29.5 H (9-20) mg/dL BUN/Creatinine Ratio 29.50 H (12.00-20.00) Ratio Plasma Lactic Acid Elliott (0.7-2.0) mmol/L Total Protein (6.3-8.2) g/dL Albumin (3.5-5.0) g/dL Urine Protein Trace H (Negative) Chest x-ray: report reviewed CT scan - abdomen: report reviewed CT scan - pelvis: report reviewed Assessment and Plan (1) Abnormal CT of the abdomen Current Visit: Yes Status: Acute Priority: High Code(s): R93.5 - ABN FIND INGS ON DX IMAGING OF ABD REGIONS, INC RETROPERITON SNOMED Code(s): 08664 [id number] (2) Abdominal pain Current Visit: Yes Status: Acute Priority: High Code(s): R10.9 - UNSPECIFIED ABDOMINAL PAIN SNOMED Code(s): 54561835 (3) Failure to thrive Current Visit: Yes Status: Acute Priority: High Code(s): RCZ6313 - SNOMED Code(s): 70057220 Plan: Abnormal CT scan, abdominal pain, weight loss: Presented with increased abdominal discomfort and reflux symptoms. With decreased appetite and approximate 10 pound weight loss over the last 1 month and 50lb weight loss over the last 2 years. 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 Has hx lung cancer status post lobectomy approx 10 years ago, he did not receive XRT or systemic treatment at that time -On admission chest x-ray showed no acute cardiopulmonary processes. Suspected consultations along the pleura, correlate for asbestos exposure. CT abdomen and pelvis was obtained showing the omentum appears to have soft tissue thickening throughout the anterior, right abdomen. Additionally there was noted nodular thickening of the left lateral costophrenic angle of the pleura. Left inguinal hernia containing loops of bowel. Distended urinary bladder. Calcified pleural plaque. -Labs reviewed, WBC 7.4, hemoglobin 10.0, platelets 557,000. LFTs and bilirubin WNL, Lipase 30 -On exam there was a palpable 3-4 cm mass in left suprapubic region -Discussed results and concerns for possible malignancy, specifically mesothelioma due to hx of asbestos exposure and noted findings on imaging -Will obtain CT chest for further evaluation of noted nodular thickening of left pleura -Consult placed to IR for biopsy of suprapubic mass Family and patient were agreeable with plan and to proceed with imaging/testing attests: I have seen and examined patient, performed H&P, developed impression and plan of care. Discussed with dictator. Agree with documentation, dictated as a scribe.
--- NOTE | 2023-12-28 22:52 | P.PN ---
Subjective Patient is a pleasant 88 years old male with past medical history of multiple medical problems as below including GERD/Reflux, Hypertension, lung cancer status post lobectomy which was about 10 years ago. Patient was recently moved back from [place] about 2 years ago, he does not have a PCP since then. Lately he has been losing weight and appetite and strength and family are concerned but patient has no PCP to follow-up till yesterday they convinced him to come to emergency room. Patient denies significant dyspnea or chest pain no coughing He has occasional abdominal pain but no vomiting. Sometimes he has regular bowel movement and sometimes diarrhea but no urinary complaints. No headache dizziness specific limb weakness or numbness. He is non-smoker no alcohol or illicit drugs Patient states that he lost about 20 pounds over the last 6 months Hemodynamically stable and afebrile He has unremarkable CBC, BMP liver enzymes and troponin. Creatinine 1.17. Urine analysis negative Lactic acid mildly elevated came back to normal EKG showing sinus rhythm at [address]-T changes CT of the abdomen and pelvis showing thickening of the omentum with nodules and left lateral costophrenic pleura suspicious for neoplasm. Also has left inguinal hernia with loops of bowel. He has distended urinary bladder. He has severe aortic valve calcification. 12/28/2023 Patient lying in bed feels fatigued and generally weak with low appetite but no other significant complaints CT of the chest showing evidence of asbestosis and mesothelioma suspected given his irregularity of omentum and pleura. Hematology/oncology team on the case and the recommended tissue biopsy. IR team was consulted. Aspirin was held and biopsy plan on Sunday 12/31 I discussed the plan with the patient and and they are agreeable Objective - Vital Signs Vital signs: Vital Signs Temp 98.0 F 12/28/23 20:00 Pulse 81 12/28/23 20:00 Resp 16 12/28/23 20:00 BP 111/67 12/28/23 20:00 Pulse Ox 95 12/28/23 20:00 FiO2 Intake & Output 12/28/23 12/28/23 12/29/23 06:59 18:59 06:59 Intake Total 590 540 Balance 590 540 Intake: Oral 590 540 Other: Voiding Method Urinal # Voids 1 # Bowel Movements 0 - Exam GENERAL: The patient is alert and oriented x3, not in any acute distress. Well developed, well nourished. HEENT: Pupils are round and equally reacting to light. EOMI. No scleral icterus. No conjunctival pallor. Normocephalic, atraumatic. No pharyngeal erythema. No thyromegaly. CARDIOVASCULAR: S1 and S2 present. No murmurs, rubs, or gallops. PULMONARY: Chest is clear to auscultation, no wheezing , no crackles. ABDOMEN: Soft, nontender, nondistended, normoactive bowel sounds. No palpable organomegaly. MUSCULOSKELETAL: No joint swelling or deformity. EXTREMITIES: No cyanosis, clubbing, or pedal edema. NEUROLOGICAL: Gross neurological examination did not reveal any focal deficits. SKIN: No rashes. no petechiae. - Labs CBC & Chem 7: 12/27/23 06:53 12/27/23 06:53 Assessment and Plan Assessment: Nodules of the omentum and left pleura (at costophrenic angle ) suspicious for an neoplasm. 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 Prognosis is guarded
--- NOTE | 2023-12-28 23:52 | P.PN ---
Subjective Progress Note Date: 12/28/23 No acute events. At today's visit patient is resting comfortably in bedside chair. Patient abdominal denies pain. CT chest revealed bilateral calcified pleural plaques suspicious for asbestos related pleural disease. Scattered strandy scarring present along with few pulmonary nodules measuring up to 1.2 cm. Omental thickening along the bilateral upper quadrant. Findings suspicious for mesenteric mesothelioma Patient is scheduled for IR biopsy on 01/01/2024, aspirin has been held Objective - Vital Signs Vital signs: Vital Signs Temp 97.7 F 12/28/23 08:00 Pulse 98 12/28/23 08:00 Resp 17 12/28/23 08:00 BP 108/76 12/28/23 08:00 Pulse Ox 97 12/28/23 08:00 FiO2 Intake & Output 12/27/23 12/28/23 12/28/23 18:59 06:59 18:59 Intake Total 980 590 Balance 980 590 Weight 48.988 kg Intake: Oral 980 590 Other: Voiding Method Urinal # Voids 2 - Constitutional General appearance: Present: thin - EENT Eyes: Present: anicteric sclerae ENT: Present: hearing grossly normal - Respiratory Details: breathing is even and unlabored - Cardiovascular Details: well perfused - Gastrointestinal General gastrointestinal: Present: soft. Absent: tenderness - Integumentary Integumentary: Absent: cyanotic - Musculoskeletal Musculoskeletal: Present: strength equal bilaterally - Psychiatric Psychiatric: Present: A&O x's 3 - Labs CBC & Chem 7: 12/27/23 06:53 12/27/23 06:53 Assessment and Plan (1) Abnormal CT of the abdomen Current Visit: Yes Status: Acute Priority: High Code(s): R93.5 - ABN FINDINGS ON DX IMAGING OF ABD REGIONS, INC RETROPERITON SNOMED Code(s): [id number] (2) Abdominal pain Current Visit: Yes Status: Acute Priority: High Code(s): R10.9 - UNSPECIFIED ABDOMINAL PAIN SNOMED Code(s): 26358105 (3) Failure to thrive Current Visit: Yes Status: Acute Priority: High Code(s): [id number] - SNOMED Code(s): 18416189 Plan: Abnormal CT scan, abdominal pain, weight loss: Presented with increased abdominal discomfort and reflux symptoms. With decreased appetite and approximate 10 pound weight loss over the last 1 month and 50lb weight loss over the last 2 years. 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 Has hx lung cancer status post lobectomy approx 10 years ago, he did not receive XRT or systemic treatment at that time -On admission chest x-ray showed no acute cardiopulmonary processes. Suspected consultations along the pleura, correlate for asbestos exposure. CT abdomen and pelvis was obtained showing the omentum appears to have soft tissue thickening throughout the anterior, right abdomen. Additionally there was noted nodular thickening of the left lateral costophrenic angle of the pleura. Left inguinal hernia containing loops of bowel. Distended urinary bladder. Calcified pleural plaque. -Labs reviewed, WBC 7.4, hemoglobin 10.0, platelets 557,000. LFTs and bilirubin WNL, Lipase 30 -On exam there was a palpable 3-4 cm mass in left suprapubic region -Discussed results and concerns for possible malignancy, specifically mesothelioma due to hx of asbestos exposure and noted findings on imaging -Will obtain CT chest for further evaluation of noted nodular thickening of left pleura -CT chest revealed bilateral calcified pleural plaques suspicious for asbestos related pleural disease. Scattered strandy scarring present along with few pulmonary nodules measuring up to 1.2 cm. Omental thickening along the bilateral upper quadrant. Findings suspicious for mesenteric mesothelioma -Patient is scheduled for IR biopsy on 01/01/2024, aspirin has been held Family and patient were agreeable with plan and to proceed with imaging/testing Patient is cleared for discharge from oncology standpoint, once cleared by admitting team and other consulted medical specialities. Remaining oncological workup can be completed in outpt setting
--- NOTE | 2023-12-29 04:34 | PN ---
PROGRESS NOTE DATE OF SERVICE: 12/28/2023 CHIEF COMPLAINT: Abdominal pain. HISTORY OF PRESENT ILLNESS: The patient presents to the hospital with abdominal pain and evidence of a left inguinal hernia. There is still a hernia bulge. Patient, however, is having bowel movements, having flatus. Denies any nausea, vomiting. He is tolerating diet. He is followed by oncology service. They have requested interventional radiology to biopsy an area in the suprapubic area. They will be unable to do that until Monday due to patient being on aspirin. PHYSICAL EXAM: Abdomen is soft, nondistended, nontender. Left inguinal hernia bulge noted with minimal tenderness. Non reducible. ASSESSMENT: Left inguinal hernia containing loops of bowel. No obstruction noted on CAT scan. PLAN: Continue oncology workup. Patient with history of lung cancer, weight loss, and thickening noted on the omentum and the CAT scan. No surgical intervention on the left inguinal hernia planned during this admission. Recommend left inguinal hernia repair when patient is medically optimized. MMODL / IJN: [id number] /
--- NOTE | 2023-12-29 14:53 | P.PN ---
Subjective Progress Note Date: 12/29/23 patient [place] stable. He has no significant complaints of abdominal pain. The patient underwent CT-guided biopsy yesterday. On exam his vital signs are stable. Abdomen is soft. Inguinal hernia is stabl e. 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 Patient will be observed. We will repeat reevaluate him on Monday. Objective - Vital Signs Vital signs: Vital Signs Temp 97.9 F 12/29/23 12:17 Pulse 89 12/29/23 12:17 Resp 16 12/29/23 12:17 BP 137/71 12/29/23 12:17 Pulse Ox 98 12/29/23 12:17 FiO2 Intake & Output 12/28/23 12/29/23 12/29/23 18:59 06:59 18:59 Intake Total 540 590 Balance 540 590 Weight 48.988 kg Intake: Oral 540 590 Other: Voiding Method Urinal # Voids 1 2 1 # Bowel Movements 0 1 - Labs CBC & Chem 7: 12/27/23 06:53 12/27/23 06:53
--- NOTE | 2023-12-29 18:35 | P.PN ---
Subjective Patient is a pleasant 88 years old male with past medical history of multiple medical problems as below including GERD/Reflux, Hypertension, lung cancer status post lobectomy which was about 10 years ago. Patient was recently moved back from [place] about 2 years ago, he does not have a PCP since then. Lately he has been losing weight and appetite and strength and family are concerned but patient has no PCP to follow-up till yesterday they convinced him to come to emergency room. Patient denies significant dyspnea or chest pain no coughing He has occasional abdominal pain but no vomiting. Sometimes he has regular bowel movement and sometimes diarrhea but no urinary complaints. No headache dizziness specific limb weakness or numbness. He is non-smoker no alcohol or illicit drugs Patient states that he lost about 20 pounds over the last 6 months Hemodynamically stable and afebrile He has unremarkable CBC, BMP liver enzymes and troponin. Creatinine 1.17. Urine analysis negative Lactic acid mildly elevated came back to normal EKG showing sinus rhythm at [address]-T changes CT of the abdomen and pelvis showing thickening of the omentum with nodules and left lateral costophrenic pleura suspicious for neoplasm. Also has left inguinal hernia with loops of bowel. He has distended urinary bladder. He has severe aortic valve calcification. 12/28/2023 Patient lying in bed feels fatigued and generally weak with low appetite but no other significant complaints CT of the chest showing evidence of asbestosis and mesothelioma suspected given his irregularity of omentum and pleura. Hematology/oncology team on the case and the recommended tissue biopsy. IR team was consulted. Aspirin was held and biopsy plan on Sunday 12/31 I discussed the plan with the patient and and they are agreeable 12/29/2023 Looks comfortable No chest pain or dyspnea No new complaint Objective - Vital Signs Vital signs: Vital Signs Temp 97.9 F 12/29/23 12:17 Pulse 89 12/29/23 12:17 Resp 16 12/29/23 12:17 BP 137/71 12/29/23 12:17 Pulse Ox 98 12/29/23 12:17 FiO2 Intake & Output 12/28/23 12/29/23 12/29/23 18:59 06:59 18:59 Intake Total 540 590 Balance 540 590 Weight 48.988 kg Intake: Oral 540 590 Other: Voiding Method Urinal # Voids 1 2 1 # Bowel Movements 0 1 - Exam GENERAL: The patient is alert and oriented x3, not in any acute distress. Well developed, well nourished. HEENT: Pupils are round and equally reacting to light. EOMI. No scleral icterus. No conjunctival pallor. Normocephalic, atraumatic. No pharyngeal erythema. No thyromegaly. CARDIOVASCULAR: S1 and S2 present. No murmurs, rubs, or gallops. PULMONARY: Chest is clear to auscultation, no wheezing , no crackles. ABDOMEN: Soft, nontender, nondistended, normoactive bowel sounds. No palpable organomegaly. MUSCULOSKELETAL: No joint swelling or deformity. EXTREMITIES: No cyanosis, clubbing, or pedal edema. NEUROLOGICAL: Gross neurological examination did not reveal any focal deficits. SKIN: No rashes. no petechiae. - Labs CBC & Chem 7: 12/27/23 06:53 12/27/23 06:53 Assessment and Plan Assessment: Nodules of the omentum and left pleura (at costophrenic angle ) suspicious for an neoplasm. 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 Prognosis is guarded
[2023-12-30] MEDS: TAMSULOSIN 0.4 MG CAP.ER.24H PO SCH (17:10)
[2023-12-30] MEDS: PANTOPRAZOLE 40 MG TABLET PO SCH (17:10)
[2023-12-30] MEDS: ATORVASTATIN 40 MG TAB PO SCH (17:10)
[2023-12-30] MEDS: FLUTICASONE NASAL 50MCG/SPRAY 16GM BTL EA NOSTRIL SCH (21:44)
--- NOTE | 2023-12-30 22:17 | P.PN ---
Subjective Patient is a pleasant 88 years old male with past medical history of multiple medical problems as below including GERD/Reflux, Hypertension, lung cancer status post lobectomy which was about 10 years ago. Patient was recently moved back from [place] about 2 years ago, he does not have a PCP since then. Lately he has been losing weight and appetite and strength and family are concerned but patient has no PCP to follow-up till yesterday they convinced him to come to emergency room. Patient denies significant dyspnea or chest pain no coughing He has occasional abdominal pain but no vomiting. Sometimes he has regular bowel movement and sometimes diarrhea but no urinary complaints. No headache dizziness specific limb weakness or numbness. He is non-smoker no alcohol or illicit drugs Patient states that he lost about 20 pounds over the last 6 months Hemodynamically stable and afebrile He has unremarkable CBC, BMP liver enzymes and troponin. Creatinine 1.17. Urine analysis negative Lactic acid mildly elevated came back to normal EKG showing sinus rhythm at [address]-T changes CT of the abdomen and pelvis showing thickening of the omentum with nodules and left lateral costophrenic pleura suspicious for neoplasm. Also has left inguinal hernia with loops of bowel. He has distended urinary bladder. He has severe aortic valve calcification. 12/28/2023 Patient lying in bed feels fatigued and generally weak with low appetite but no other significant complaints CT of the chest showing evidence of asbestosis and mesothelioma suspected given his irregularity of omentum and pleura. Hematology/oncology team on the case and the recommended tissue biopsy. IR team was consulted. Aspirin was held and biopsy plan on Sunday 12/31 I discussed the plan with the patient and and they are agreeable 12/29/2023 Looks comfortable No chest pain or dyspnea No new complaint 12/30/2023 Patient looks comfortable No specific complaint Pending biopsy on Monday Objective - Vital Signs Vital signs: Vital Signs Temp 98.2 F 12/30/23 20:00 Pulse 104 H 12/30/23 20:00 Resp 16 12/30/23 20:00 BP 126/62 12/30/23 20:00 Pulse Ox 97 12/30/23 20:00 FiO2 Intake & Output 12/30/23 12/30/23 12/31/23 06:59 18:59 06:59 Intake Total 590 Balance 590 Intake: Oral 590 Other: Voiding Method Urinal # Voids 2 1 - Exam GENERAL: The patient is alert and oriented x3, not in any acute distress. Well developed, well nourished. HEENT: Pupils are round and equally reacting to light. EOMI. No scleral icterus. No conjunctival pallor. Normocephalic, atraumatic. No pharyngeal erythema. No thyromegaly. CARDIOVASCULAR: S1 and S2 present. No murmurs, rubs, or gallops. PULMONARY: Chest is clear to auscultation, no wheezing , no crackles. ABDOMEN: Soft, nontender, nondistended, normoactive bowel sounds. No palpable organomegaly. MUSCULOSKELETAL: No joint swelling or deformity. EXTREMITIES: No cyanosis, clubbing, or pedal edema. NEUROLOGICAL: Gross neurological examination did not reveal any focal deficits. SKIN: No rashes. no petechiae. - Labs CBC & Chem 7: 12/27/23 06:53 12/27/23 06:53 Assessment and Plan Assessment: Nodules of the omentum and left pleura (at costophrenic angle ) suspicious for an neoplasm. 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 Prognosis is guarded
--- NOTE | 2023-12-30 22:34 | P.PN ---
Subjective Patient seen and evaluated at bedside. Patient doing well, denies abdominal Pain gen: nad cv: rrr pul: non labored breathing abd/groin: large mass in groin region(hard/calcified), hernia defect palpated Objective - Vital Signs Vital signs: Vital Signs Temp 98.2 F 12/30/23 20:00 Pulse 104 H 12/30/23 20:00 Resp 16 12/30/23 20:00 BP 126/62 12/30/23 20:00 Pulse Ox 97 12/30/23 20:00 FiO2 Intake & Output 12/30/23 12/30/23 12/31/23 06:59 18:59 06:59 Intake Total 590 Balance 590 Intake: Oral 590 Other: Voiding Method Urinal # Voids 2 1 - Labs CBC & Chem 7: 12/27/23 06:53 12/27/23 06:53 Assessment and Plan Assessment: 88 yo male w/ history of weight loss and left groin mass history of inguinal hernia -await IR biopsy -no surgical intervention at this time
[2023-12-31] MEDS: LISINOPRIL-HCTZ 20-12.5 MG 1 EACH TAB PO SCH (08:55)
[2023-12-31] MEDS: BISOPROLOL 5 MG TAB PO SCH (08:55)
--- NOTE | 2023-12-31 11:13 | P.PN ---
Subjective Patient is a pleasant 88 years old male with past medical history of multiple medical problems as below including GERD/Reflux, Hypertension, lung cancer status post lobectomy which was about 10 years ago. Patient was recently moved back from [place] about 2 years ago, he does not have a PCP since then. Lately he has been losing weight and appetite and strength and family are concerned but patient has no PCP to follow-up till yesterday they convinced him to come to emergency room. Patient denies significant dyspnea or chest pain no coughing He has occasional abdominal pain but no vomiting. Sometimes he has regular bowel movement and sometimes diarrhea but no urinary complaints. No headache dizziness specific limb weakness or numbness. He is non-smoker no alcohol or illicit drugs Patient states that he lost about 20 pounds over the last 6 months Hemodynamically stable and afebrile He has unremarkable CBC, BMP liver enzymes and troponin. Creatinine 1.17. Urine analysis negative Lactic acid mildly elevated came back to normal EKG showing sinus rhythm at [address]-T changes CT of the abdomen and pelvis showing thickening of the omentum with nodules and left lateral costophrenic pleura suspicious for neoplasm. Also has left inguinal hernia with loops of bowel. He has distended urinary bladder. He has severe aortic valve calcification. 12/28/2023 Patient lying in bed feels fatigued and generally weak with low appetite but no other significant complaints CT of the chest showing evidence of asbestosis and mesothelioma suspected given his irregularity of omentum and pleura. Hematology/oncology team on the case and the recommended tissue biopsy. IR team was consulted. Aspirin was held and biopsy plan on Sunday 12/31 I discussed the plan with the patient and and they are agreeable 12/29/2023 Looks comfortable No chest pain or dyspnea No new complaint 12/30/2023 Patient looks comfortable No specific complaint Pending biopsy on Monday11/30/2023 No new complaint Patient ready for biopsy tomorrow I emphasized the importance of follow-up upon discharge and bradycardia both agree. Since patient has no insurance we will going to refer him to [facility] upon discharge , Patient and informed and they agree Objective - Vital Signs Vital signs: Vital Signs Temp 98.1 F 12/31/23 07:28 Pulse 91 12/31/23 07:28 Resp 17 12/31/23 07:28 BP 122/72 12/31/23 07:28 Pulse Ox 100 12/31/23 07:28 FiO2 Intake & Output 12/30/23 12/31/23 12/31/23 18:59 06:59 18:59 Intake Total 590 120 Balance 590 120 Intake: Oral 590 120 Other: Voiding Method Urinal # Voids 1 2 - Exam GENERAL: The patient is alert and oriented x3, not in any acute distress. Well developed, well nourished. HEENT: Pupils are round and equally reacting to light. EOMI. No scleral icterus. No conjunctival pallor. Normocephalic, atraumatic. No pharyngeal erythema. No thyromegaly. CARDIOVASCULAR: S1 and S2 present. No murmurs, rubs, or gallops. PULMONARY: Chest is clear to auscultation, no wheezing , no crackles. ABDOMEN: Soft, nontender, nondistended, normoactive bowel sounds. No palpable organomegaly. MUSCULOSKELETAL: No joint swelling or deformity. EXTREMITIES: No cyanosis, clubbing, or pedal edema. NEUROLOGICAL: Gross neurological examination did not reveal any focal deficits. SKIN: No rashes. no petechiae. - Labs CBC & Chem 7: 12/27/23 06:53 12/27/23 06:53 Assessment and Plan Assessment: Nodules of the omentum and left pleura (at costophrenic angle ) suspicious for an neoplasm. 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 Prognosis is guarded
--- NOTE | 2023-12-31 12:20 | P.PN ---
Subjective Progress Note Date: 12/31/23 Principal diagnosis: Left groin mass Patient sitting up in the chair today. Only mild abdominal discomfort. Moved his bowels yesterday. No nausea or vomiting. Objective - Vital Signs Vital signs: Vital Signs Temp 98.1 F 12/31/23 07:28 Pulse 91 12/31/23 07:28 Resp 17 12/31/23 07:28 BP 122/72 12/31/23 07:28 Pulse Ox 100 12/31/23 07:28 FiO2 Intake & Output 12/30/23 12/31/23 12/31/23 18:59 06:59 18:59 Intake Total 590 120 Balance 590 120 Intake: Oral 590 120 Other: Voiding Method Urinal # Voids 1 2 - Exam Abdomen: Soft, nondistended, palpable left groin mass/hernia - Labs CBC & Chem 7: 12/27/23 06:53 12/27/23 06:53 Assessment and Plan (1) Inguinal hernia Narrative/Plan: 88-year-old male with left groin mass associated with left inguinal hernia. Possible pericolonic mass and hernia sac. Percutaneous biopsy has been ordered. This apparently is already scheduled for tomorrow. Current Visit: Yes Status: Acute Code(s): K40.90 - UNIL INGUINAL HERNIA, W/O OBST OR GANGR, NOT SPCF RECUR SNOMED Code(s): 205143650
[2023-12-31 14:09] VITALS: RESP 16
--- NOTE | 2024-01-01 12:24 | CT ---
EXAMINATION TYPE: CT biopsy abdomen percutaneous DATE OF EXAM: 01/01/2024 COMPARISON: NONE HISTORY: BIOPSY CT DLP: 647mGycm The procedure was explained to the patient. The risks, complications, benefits, and alternatives wer e discussed and any questions were answered. Informed consent was obtained. Patient was placed supi ne on the CT table and prepped and draped in the usual sterile fashion. All elements of maximal barrier and sterile technique utilized. Utilizing CT guidance, an 18 gauge core biopsy needle access into the right lateral peritoneal abdomi nal mass was achieved and a single 18 gauge core sample was obtained. The patient was stable through out the procedure and remained stable upon discharge. IMPRESSION: 1. Successful 18 gauge core biopsy of the peritoneal abdominal mass.
[2024-01-01 12:45] VITALS: BP 104/60; PULSE 66; TEMP 97.6
--- NOTE | 2024-01-01 14:52 | P.PN ---
Subjective Progress Note Date: 01/01/24 CHIEF COMPLAINT: Left inguinal hernia HISTORY OF PRESENT ILLNESS: Patient is status post core biopsy of peritoneal abdominal mass by IR service. Patient seen prior to biopsy. He has been up and ambulating the hallway. Pain controlled. Denies any nausea or vomiting. Afebrile. PHYSICAL EXAM: VITAL SIGNS: Reviewed. GENERAL: no acute distress. ABDOMEN: Soft. Nondistended. Left inguinal hernia NEUROLOGIC: Alert and oriented. Cranial nerves II through XII grossly intact. ASSESSMENT: 1. Left inguinal hernia 2. Peritoneal abdominal mass status post core biopsy 3. History of lung cancer and asbestos exposure PLAN: -Continue supportive care -Follow-up on biopsy results -Continue to monitor Physician Track Maintainer note has been reviewed by physician. Signing provider agrees with the documented findings, assessment, and plan of care. Objective - Vital Signs Vital signs: Vital Signs Temp 97.6 F 01/01/24 12:28 Pulse 66 01/01/24 12:28 Resp 16 01/01/24 12:28 BP 104/60 01/01/24 12:28 Pulse Ox 100 01/01/24 12:28 FiO2 Intake & Output 12/31/23 01/01/24 01/01/24 18:59 06:59 18:59 Intake Total 478 358 Output Total 300 Balance 478 358 -300 Intake: Oral 478 358 Output: Urine 300 Other: Voiding Method Urinal # Voids 2 2 - Labs CBC & Chem 7: 12/27/23 06:53 12/27/23 06:53
--- NOTE | 2024-01-08 13:38 | CDI ---
Documentation Clarification Form Date: 01/07 From: Cecilia Murillo Admit Date: 12/26/2023 08:35:00 PM Patient Name: Bryce Smith Visit Number: [id number] Discharge Date: 01/01/2024 07:40:00 PM ATTENTION: The Clinical Documentation Specialists (CDI) and [facility] Coding Staff appreciate your assistance in clarifying documentation. Please respond to the clarification below the line at the bottom and electronically sign. The CDI & [facility] Coding staff will review the response and follow-up if needed. Please note: Queries are made part of the Legal Health Record. If you have any questions, please contact the author of this message via ITS. Dr. 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 Coding guidelines do not allow coding professionals to code based on pathology results; therefore, clarification is requested. 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 Please clarify if you agree with the pathology report diagnosis of mesothelioma of abdominal mass, metastatic: [ x ] Yes [ ] No [ ] Other (please specify) [ ] Unable to determine i called the number on file at [phone] for and ms smith and left a message to call back [facility]
--- NOTE | 2024-01-09 16:47 | P.DS ---
Providers Date of admission: 12/26/23 20:35 Attending physician: Star Sena Consults: 12/26/23 20:31 Consult Physician Urgent Consulting Provider: Murtaza Lainez Consult Reason/Comments: left inguinal hernia Do you want consulting provider notified?: Yes Consult Physician Urgent Consulting Provider: Ernie Jo Consult Reason/Comments: weight loss, failure to thrive, possible new ca dx Do you want consulting provider notified?: Yes Primary care physician: Stated None Hospital Course: Diagnoses Nodules of the omentum and left pleura (at costophrenic angle ) suspicious for an neoplasm. Rule out mesothelioma Asbestosis is suspected Generalized weakness and loss of weight secondary to above, with severe calorie protein malnutrition History of lung cancer status post surgery 10 years ago GERD Hypertension Hospital course: Patient is a pleasant 88 years old male with past medical history of multiple medical problems as below including GERD/Reflux, Hypertension, lung cancer status post lobectomy which was about 10 years ago. Patient was recently moved back from [place] about 2 years ago, he does not have a PCP since then. Lately he has been losing weight and appetite and strength and family are concerned but patient has no PCP to follow-up till yesterday they convinced him to come to emergency room. Patient denies significant dyspnea or chest pain no coughing Aspirin was held and CT-guided biopsy planned on Sunday 12/31. After the procedure patient was doing well, he remains asymptomatic and cleared for discharge I talked to the patient and at bedside and they agree with the plan, They will follow-up with Dr. Jo 01/15 for the biopsy results, they both understand the high possibility of cancer. Also patient has no PCP and he agrees to follow-up with the [facility] in 1 week after discharge and contact information is provided for him. Patient was cleared for discharge by oncology team Problems and management plan were discussed with the patient and he verbalized understanding and acceptance Patient was found stable and can be discharged home in guarded prognosis however he needs follow-up as an outpatient. Patient was instructed to follow up with PCP within one week and patient agrees Physical exam Gen: patient is a AAOx3, no distress CVS: S1-S2, RRR, no murmur Lungs: B/L CTA, no wheezing Abdomen: soft, no distention, no tenderness, positive bowel sounds Extremity: no leg edema or induration Time spent more than 35 minutes Patient Condition at Discharge: Stable Plan - Discharge Summary Discharge Rx Participant: No New Discharge Prescriptions: Continue Silodosin [Rapaflo] 8 mg PO W/SUPPER Atorvastatin [Lipitor] 40 mg PO W/SUPPER Lisinopril-Hctz 20-12.5 mg [Zestoretic 20-12.5] 1 tab PO DAILY Bisoprolol [Zebeta] 5 mg PO DAILY Mometasone Furoate [Nasonex 24Hr Allergy] 1 spray NASAL HS Lansoprazole [Prevacid] 30 mg PO W/SUPPER Aspirin EC [Ecotrin Low Dose] 81 mg PO DAILY Discharge Medication List Aspirin EC [Ecotrin Low Dose] 81 mg PO DAILY 12/26/23 [History] Atorvastatin [Lipitor] 40 mg PO W/SUPPER 12/26/23 [History] Bisoprolol [Zebeta] 5 mg PO DAILY 12/26/23 [History] Lansoprazole [Prevacid] 30 mg PO W/SUPPER 12/26/23 [History] Lisinopril-Hctz 20-12.5 mg [Zestoretic 20-12.5] 1 tab PO DAILY 12/26/23 [History] Mometasone Furoate [Nasonex 24Hr Allergy] 1 spray NASAL HS 12/26/23 [History] Silodosin [Rapaflo] 8 mg PO W/SUPPER 12/26/23 [History] Follow up Appointment(s)/Referral(s): Ernie Jo [STAFF PHYSICIAN] - 01/16/24 1:30 pm None,Stated [Primary Care Provider] - [facility] 1 Week (Please make appointment) Activity/Diet/Wound Care/Special Instructions: heart healthy diet activity is restricted till you see your doctor Monitor puncture site. Bleeding, redness, swelling, please contact doctor or return to ER No showering for 24 hours Discharge Disposition: HOME SELF-CARE
== END 2024-01-01 19:40 | disposition home or self-care (01) | DRG 374 ==
LOC: EC 15:34 → 5NMEDONC 20:34 → OBSVTOIN 20:35 → 5NMEDONC 23:17
PROVIDERS: ADMIT Hospitalist; ATTEND Hospitalist
PROC: 0DBW3ZX Excision of Peritoneum, Percutaneous Approach, Diagnostic (ICD-10-PCS; principal; 2024-01-01)
DX: C78.6 Secondary malignant neoplasm of retroperitoneum and peritoneum (principal); E43 Unspecified severe protein-calorie malnutrition; Z68.1 Body mass index [BMI] 19.9 or less, adult; C45.7 Mesothelioma of other sites; R62.7 Adult failure to thrive; F32.A Depression, unspecified; I10 Essential (primary) hypertension; I35.8 Other nonrheumatic aortic valve disorders; R63.4 Abnormal weight loss; J92.0 Pleural plaque with presence of asbestos; K21.9 Gastro-esophageal reflux disease without esophagitis; K40.90 Unilateral inguinal hernia, without obstruction or gangrene, not specified as recurrent; Z77.090 Contact with and (suspected) exposure to asbestos; Z79.82 Long term (current) use of aspirin; Z79.899 Other long term (current) drug therapy; Z59.7 Insufficient social insurance and welfare support; Z95.5 Presence of coronary angioplasty implant and graft; Z85.828 Personal history of other malignant neoplasm of skin; Z71.3 Dietary counseling and surveillance; Z88.0 Allergy status to penicillin
CPT/HCPCS: 36415; 49180; 71046; 71260; 74177; 77012; 80048; 80053; 81003; 83605; 83690; 84484; 85025; 85610; 88305; 88341; 88342; 93005; 96360; 99285